=== PATIENT | female | born 2000 | race Caucasian/White ===

== ENCOUNTER 2024-04-21 15:05 | Emergency (ER) | payer BC, OTHER ==
[2024-04-21] MEDS ORDERED: Ibuprofen 200 MG TAB ONE (16:18)
== END 2024-04-21 17:05 | disposition home or self-care (01) ==
LOC: CSHERS 15:05
DX: S29.012A Strain of muscle and tendon of back wall of thorax, initial encounter (principal); M54.2 Cervicalgia; V49.9XXA Car occupant (driver) (passenger) injured in unspecified traffic accident, initial encounter
CPT/HCPCS: 71046; 72072